=== PATIENT | female | born 1965 | race Caucasian/White ===

== ENCOUNTER 2016-05-05 12:30 | Emergency (ER) | payer MEDICAID ==
[2016-05-05] MEDS ORDERED: Sodium Chloride 0.9% 2,000 ML IV ONE (13:12)
--- NOTE | 2016-05-05 13:21 | ED Physician Chart ---
Chief Complaint/HPI - Patient Information Date Seen:: 05/05/16 Time Seen:: 13:00 Chief Complaint:: abdominal pain, vomiting and diarrhea History of Present Illness:: LUQ abdominal pain, vomiting and diarrhea each about 20 times over the last 4 days. Allergies:: Allergies Allergy/AdvReac Type Severity Reaction Status Date / Time MDX No Known Allergies - Nka Allergy Verified 01/21/15 13:08 [No Known Allergies - Nka] Vitals:: Vital Signs - 8 hr 05/05/16 12:57 Temp 97.6 F HR 94 RR 16 BP 108/66 O2 Sat % 95 Historian:: Patient Review:: Nurse's Note Reviewed Review of Systems - Review of Systems General/Constitutional: No fever, No chills Skin: No skin lesions Head: No headache Eyes: No loss of vision ENT: No earache Neck: No neck pain, No swelling Cardio Vascular: No chest pain, No palpitations Pulmonary: No SOB GI: Nausea, Vomiting, Diarrhea G/U: No dysuria Musculoskeletal: No bone or joint pain Endocrine: No polyuria Psychiatric: No prior psych history Hematopoietic: No bruising Allergic/Immuno: No urticaria Neurological: No syncope, No focal symptoms Past Medical History - Past Medical History Past Medical History: Thyroid disorder, Other (neuropathy; arthritis in back; hypothyroidism) Family History: Diabetes Melitus, Cancer Social History: Non Smoker, Alcohol, Other (smoks 1 - 1 1/2 PPD; drinks alcohol occasionally) Surgical History: , other (hernia) Psychiatricy History: None Medication: Reviewed Family Medical History - Family Member Mother History Unknown: Yes Ethnicity: Non- Living Status: Still Living Hx Family Cancer: Yes Hx Family Coronary Artery Disease: No Hx Family Congestive Heart Failure: No Hx Family Hypertension: No Hx Family Stroke: No Hx Family Diabetes: No Hx Family Seizures: No Hx Family Dementia: No Hx Family AIDS: No Hx Family HIV: No Hx Family COPD: No Hx Family Hepatitis: No Hx Family Psychiatric Problems: No Hx Family Tuberculosis: No Physical Exam - Physical Examination General/Constitutional: Well-developed, well-nourished, Alert, No distress Head: Atraumatic Eyes: Lids, conjuctiva normal, PERRL Skin: Nl inspection, No rash, No skin lesions, No ecchymosis ENMT: External ears, nose nl, TM canals nl, Nasal exam nl, Lips, teeth, gums nl , Oropharynx nl Neck: No nuchal rigidity Respiratory: Nl effort/Exclusion, Clear to Auscultation Cardio Vascular: RRR, No murmur, gallop, rubs GI: Normal BS's, Nondistended, No mass/bruits Other GI comments:: LUQ, LLQ, periumbilical and suprapubic tenderness with rebound : No CVA tenderness Extremities: Normal digits & nails Neuro/Psych: Alert/oriented Misc: Normal back Labs/Radiology/EKG Results - Lab Results Comments:: Laboratory Results - last 24 hr 05/05/16 05/05/16 05/05/16 13:20 13:20 13:20 WBC 9.1 RBC 5.23 H Hgb 16.3 H Hct 47.5 H MCV 90.9 MCH 31.2 H MCHC Differential 34.3 RDW 12.8 Plt Count 198 MPV 8.5 Neutrophils % 78.9 Lymphocytes % 14.9 L Monocytes % 5.4 Eosinophils % 0.5 Basophils % 0.3 Sodium 134 L Potassium 3.4 L Chloride 101 Carbon Dioxide 26.1 Anion Gap 10.3 BUN 15 Creatinine 0.6 Est GFR ( Amer) > 60.0 Est GFR (Non-Af Amer) > 60.0 BUN/Creatinine Ratio 25.0 Glucose 108 H Calcium 9.8 Lipase 30 Serum , Qual 05/05/16 13:20 WBC RBC Hgb Hct MCV MCH MCHC Differential RDW Plt Count MPV Neutrophils % Lymphocytes % Monocytes % Eosinophils % Basophils % Sodium Potassium Chloride Carbon Dioxide Anion Gap BUN Creatinine Est GFR ( Amer) Est GFR (Non-Af Amer) BUN/Creatinine Ratio Glucose Calcium Lipase Serum , Qual NEGATIVE - Radiology Results Results: right inguinal hernia with partial small bowel obstruction. Assessment - Assessment General Assessment: Talked to Dr. Anna who wanted insurance contacted to see what hospital patient should be transferred to. Talked also to Dr. Zhong who agreed to be retirement sales consultant if patient is admitted here. Dr. Angel Montes called me and accepted patient in transfer to [facility]. ED Septic Shock - . Is Septic Shock (SBP<90, OR Lactate>4 mmol\L) present?: No - <6hrs of presentation: Vital Signs: Vital Signs - 8 hr 05/05/16 12:57 Temp 97.6 F HR 94 RR 16 BP 108/66 O2 Sat % 95 Reassessment (Disposition) - Reassessment Reassessment:: at about 1600 abdominal exam revealed an about a 4 x 2 cm right inguinal non- reducible mass. - Diagnosis Diagnosis:: small bowel obstruction; right inguinal hernia; abdominal pain - Patient Disposition Discharge/Transfer:: Acute Care (other hosp) Condition at Disposition:: Stable, Unchanged
[2016-05-05 13:29] LABS: % BASOPHILS 0.3 % (0.0-2.0); % EOSINOPHILS 0.5 % (0.0-5.0); % LYMPHOCYTES 14.9 % (20.0-50.0); % MONOCYTES 5.4 % (2.0-10.0); % NEUTROPHILS 78.9 % (40.0-80.0); HEMATOCRIT 47.5 % (35.0-45.0); HEMOGLOBIN 16.3 gm/dL (11.7-15.5); MEAN CELL VOLUME 90.9 fl (81-100); MEAN CORPUSCULAR HEMOGLOBIN 31.2 pg (27.0-31.0); MEAN CORPUSCULAR HGB CONC 34.3 pg (28.0-36.0); MEAN PLATELET VOLUME 8.5 fl; NEUTROPHILE ABSOLUTE 7.2 Th/cmm (1.8-8.0); PLATELET COUNT 198 Th/cmm (150-400); RED BLOOD COUNT 5.23 Mil/cmm (3.80-5.10); RED CELL DISTRIBUTION WIDTH 12.8 % (11.5-20.0); WHITE BLOOD COUNT 9.1 Th/cmm (4.8-10.8)
[2016-05-05 13:50] LABS: ANION GAP 10.3 (7.0-16.0); BUN - UREA NITROGEN 15 mg/dL (7-25); CALCIUM SERUM 9.8 mg/dL (8.6-10.3); CARBON DIOXIDE 26.1 mEq/L (21.0-31.0); CHLORIDE 101 mEq/L (98-107); CREATININE - SERUM 0.6 mg/dL (0.6-1.2); GLUCOSE 108 mg/dL (70-105); POTASSIUM SERUM 3.4 mEq/L (3.5-5.1); SODIUM SERUM 134 mEq/L (136-145)
--- NOTE | 2016-05-05 14:23 | Diagnostic Imaging Report ---
CT abdomen and pelvis without intravenous contrast Indication: Pain, rebound tenderness Comparison: None, Technique: Axial images were obtained from the lung bases to the bilateral proximal femurs without IV contrast. Coronal reconstructions were made. total DLP: 611, CTDI11.5 FINDINGS: Hypoventilatory atelectatic lung changes are noted. Assessment of the solid organs is limited due to lack of IV contrast. No evidence of focal hepatic lesions. Mild prominence of the gallbladder wall is noted. No focal splenic lesions. Pancreatic gland atrophy is noted with no evidence of focal lesions. 5 cm left renal cyst is noted. No hydronephrosis. Mild prominence of the cervix is noted. There is copious amount of stool. Multiple distended loops of small bowel are seen. A right lower inguinal hernia is seen which appears to likely contain a loop of bowel. This may be a transition point for possible partial small bowel obstruction in this region. Trace free fluid is seen within the pelvis. No free air. Mild atherosclerosis is noted. Small fat-containing umbilical hernia is noted. Degenerative changes of the spine are noted with scoliosis. Small bone islands of the pelvis are noted. . IMPRESSION: Moderate sized right inguinal hernia which appears to likely contain a focal bowel loop. This may be causing a partial small bowel obstruction as multiple dilated loops of small bowel are seen proximally. Clinical correlation and follow-up is recommended Copious stool throughout the colon. Trace free fluid in the pelvis. No free air. The appendix was not visualized Prominence of the cervix. The significance of this finding should be correlated with clinical examination. 5 cm left renal cyst.
--- NOTE | 2016-05-05 16:18 | Admit Criteria Form ---
Admit Criteria Forms - Admit Criteria Diagnosis: INTESTINAL OBSTRUCTION Clinical Indications for Admission to Inpatient Care (Place 'X' for any and all applicable criteria): Admission is indicated for ANY ONE of the following (1)(2)(3)(4)(5): [X ]I. Partial bowel obstruction [ ]II. Complete bowel obstruction Extended stay beyond goal length of stay may be needed for(1)(4)(12(: [ ]a) Identified etiology (eg, hernia, volvulus, cancer with obstruction) requiring intervention [ ]b) Gallstone ileus [ ]c) Surgical intervention [ ]d) Acute comorbid illness (eg, electrolyte imbalance, hypovolemia, renal failure) The original [employer] content created by [employer] has been revised. The portions of the content which have been revised are identified through the use of italic text or in bold, and [facility] has neither reviewed nor approved the modified material. All other unmodified content is copyright [employer]. Please see references footnoted in the original [employer] edition 2016 Admit Criteria Met?: Yes
== END 2016-05-05 20:00 | disposition short-term general hospital (02) ==
LOC: ER 12:30
DX: K40.30 Unilateral inguinal hernia, with obstruction, without gangrene, not specified as recurrent (principal); E03.9 Hypothyroidism, unspecified
CPT/HCPCS: 36415-UA; 80048-TC; 81025-TC; 83690-TC; 85025-TC; J7030